=== PATIENT | male | born 1995 | race Caucasian/White ===

== ENCOUNTER 2024-12-06 11:41 | Emergency (ER) | payer OTHER ==
[~2024-12-06] VITALS: Ht 165.1 cm; Wt 61.2 kg
[2024-12-06] MEDS ORDERED: CLIN150 PO (11:59)
== END 2024-12-06 12:02 | disposition home or self-care (01) ==
LOC: ER 11:41
DX: K05.10 Chronic gingivitis, plaque induced (principal); Z88.0 Allergy status to penicillin; Z79.2 Long term (current) use of antibiotics
CPT/HCPCS: 99282

== ENCOUNTER 2024-12-24 07:40 | Emergency (ER) | payer OTHER ==
[~2024-12-24] VITALS: Ht 165.1 cm; Wt 59.0 kg
[~2024-12-24 07:40] MED LIST: CLIN150 PO
[2024-12-24] MEDS ORDERED: Midazolam HCL 1 MG/ML 5MLVIAL IM ONE (08:55)
[2024-12-24] MEDS ORDERED: Trimethoprim/Sulfamethoxazole DS Tab PO ONE (09:35)
[2024-12-24] MEDS ORDERED: IBUP800 PO (09:40)
[2024-12-24] MEDS ORDERED: SULTRIDS PO (09:40)
== END 2024-12-24 09:49 | disposition home or self-care (01) ==
LOC: ER 07:40
DX: L02.512 Cutaneous abscess of left hand (principal); Z87.891 Personal history of nicotine dependence; Z88.0 Allergy status to penicillin
CPT/HCPCS: 10060; 87070; 87077; 87147; 87186; 87205; 96372-59; 99282-25; A9270; J2250